=== PATIENT | male | born 1960 | race Caucasian/White ===

== ENCOUNTER 2016-05-22 07:43 | Outpatient (CLI) | payer BC ==
[2016-05-22 08:32] LABS: ALT (SGPT) 45 U/L (0-55); AST (SGOT) 31 U/L (5-34); Alkaline Phosphatase 43 U/L (40-150); Bilirubin, Direct 0.4 mg/dL (0.1-0.3); LDL Cholesterol, Calculated 80 mg/dL; Protein, Total 7.2 g/dL (6.0-8.3)
== END 2016-05-22 07:44 | disposition home or self-care (01) ==
LOC: BURLAB 07:43
PROVIDERS: ATTEND Family Medicine
DX: E78.2 Mixed hyperlipidemia (principal)
CPT/HCPCS: 36415; 80061; 80076